=== PATIENT | female | born 1955 | race Caucasian/White ===

== ENCOUNTER → 2016-11-08 | Outpatient (CLI) | payer OTHER ==
--- NOTE | 2016-11-08 18:41 | DX ---
DEXA Bone Mineral Densitometry Clinical Indications: 61-year-old female who went through menopause at age 54. The patient takes supp lementary vitamin D and a multivitamin, and exercises by participating in walking, biking, swimming, and weight training. She has a family history of osteoporosis. Evaluate for estrogen deficiency, and screen for personal osteoporosis. ICD 10 Diagnostic Codes: Z00.00, and Z13.820. Comparison: None available. Technique: Bone Mineral Densitometry (BMD) by Dual Energy X-Ray Absorptiometry (DEXA) was performed utilizing the [employer] scanner. The lumbar spine was evaluated in the AP projection. Both hips and the left forearm were evaluated in the AP projection. Vertebral fracture assessment was also perf ormed. A FRAX score was calculated. AP Lumbar Spine: The L1, L2, L3 and L4 vertebral bodies were evaluated. BMD: 1.142 gm/cm2 T-score: -0.4 SD Z-score: 0.4 SD AP Left Hip: Total BMD: 1.083 gm/cm2 T-score: 0.6 SD Z-score: 1.3 SD AP Right Hip: Total BMD: 1.062 gm/cm2 T-score: 0.4 SD Z-score: 1.1 SD AP Left Forearm, 10/29: BMD: 0.780 gm/cm2 T-score: -1.1 SD* Z-score: -0.1 SD Vertebral Fracture Assessment: There is no significant fracture deformity. FRAX Score: The 10 year probability for any major osteoporotic fracture is 9.5%, and for a hip fractu re 0.1%. Conclusion: Considering the lowest measured site, the patient is mildly osteopenic* (low bone mineral density). Any bone loss in this patient is probably related to aging or estrogen deficiency. Recommendations: To prevent osteoporosis and to promote bone density, consider the following recommendations: 1. Continue to pursue a regular regimen of weightbearing and muscle-strengthening exercises in order to reduce the risk of falls and fracture (as tolerated by the patient's general medical condition). 2. Ensure that total daily calcium intake is at least 1500 mg (diet plus supplements). 3. Check serum hydroxy vitamin D3 (normal >30ng/ml). 4. Ensure daily intake of vitamin D is 800 international units. 5. Consider a follow up DEXA scan in two years to assess the rate of bone loss in this patient.
== END ==
LOC: BRMIMAGING 13:24
PROVIDERS: ATTEND Nurse Practitioner
DX: Z13.820 Encounter for screening for osteoporosis (principal); Z78.0 Asymptomatic menopausal state; Z82.62 Family history of osteoporosis; M85.80 Other specified disorders of bone density and structure, unspecified site

== ENCOUNTER → 2017-09-09 | Outpatient (CLI) | payer OTHER | LOC: CIMAGING 07:07 | PROVIDERS: ATTEND Nurse Practitioner | DX: R19.4 Change in bowel habit (principal) | CPT/HCPCS: 74000-PO ==

== ENCOUNTER → 2017-11-18 | Outpatient (CLI) | payer OTHER | LOC: CIMAGING 08:39 | PROVIDERS: ATTEND Nurse Practitioner | DX: Z12.31 Encounter for screening mammogram for malignant neoplasm of breast (principal) ==